=== PATIENT | male | born 1965 | race Caucasian/White ===

== ENCOUNTER 2017-06-14 10:48 | Emergency (ER) | payer MEDICAID ==
[~2017-06-14] VITALS: Ht 177.8 cm; Wt 71.0 kg
[~2017-06-14 10:48] MED LIST: BENA20TA2 PO; HYDR-568 PO; MELO-102 PO; OMEP20CA10 PO; QUET-1 PO; SIMV20TA5 PO
[2017-06-14 11:51] VITALS: BP 145/77
== END 2017-06-14 11:53 | disposition left against medical advice (07) ==
LOC: ER 10:48
DX: S63.255A Unspecified dislocation of left ring finger, initial encounter (principal); E78.00 Pure hypercholesterolemia, unspecified; I10 Essential (primary) hypertension; F32.9 Major depressive disorder, single episode, unspecified; F12.10 Cannabis abuse, uncomplicated; F15.10 Other stimulant abuse, uncomplicated; X58.XXXA Exposure to other specified factors, initial encounter; Y93.89 Activity, other specified; Y92.89 Other specified places as the place of occurrence of the external cause; Y99.8 Other external cause status
CPT/HCPCS: 73130; 99284

== ENCOUNTER 2018-11-25 14:16 | Emergency (ER) | payer MEDICAID ==
[~2018-11-25] VITALS: Ht 177.8 cm; Wt 84.1 kg
[~2018-11-25 14:16] MED LIST changes: -BENA20TA2 PO; +BENA20TA82 PO; +HYDR-4384 PO; -HYDR-568 PO; -OMEP20CA10 PO; +OMEP20CA11 PO
[2018-11-25 14:42] VITALS: BP 127/87
[2018-11-25 15:54] LABS: URINE AMPHETAMINE SCREEN NEGATIVE (Neg); URINE BARBITUATE SCREEN NEGATIVE (Neg); URINE BENZODIAZEPINES SCREEN NEGATIVE (Neg); URINE CANNABINOID SCREEN POSITIVE (Neg); URINE COCAINE SCREEN NEGATIVE (Neg); URINE METHADONE SCREEN NEGATIVE (Neg); URINE OPIATE SCREEN NEGATIVE (Neg); URINE PHENCYCLIDINE SCREEN NEGATIVE (Neg)
--- NOTE | 2018-11-25 15:59 | NUR ---
PATIENT GAVE URINE SPEC AND LEFT UNIT TO GET SOMETHING OUT OF HIS CAR. WHEN HE RETURNED, PATIENT WAS INSTRUCTED TO SIT IN WAITING ROOM UNTIL TEST IS RESULTED. AWAITING TEST RESULTS IN WAITING ROOM.
== END 2018-11-25 16:25 | disposition home or self-care (01) ==
LOC: ER 14:16
DX: Z00.00 Encounter for general adult medical examination without abnormal findings (principal); F12.90 Cannabis use, unspecified, uncomplicated; F15.90 Other stimulant use, unspecified, uncomplicated; E78.00 Pure hypercholesterolemia, unspecified; I10 Essential (primary) hypertension; F32.9 Major depressive disorder, single episode, unspecified; F17.200 Nicotine dependence, unspecified, uncomplicated; Z79.899 Other long term (current) drug therapy
CPT/HCPCS: 80305; 99283